=== PATIENT | female | born 1955 | race Caucasian/White ===

== ENCOUNTER → 2017-07-11 | Outpatient (CLI) | payer BC ==
[~2017-07-11] MED LIST: ASPI-496 PO; CA C1TAB62 PO; CHOL10002 PO; FOLI0.8T2 PO; MULT-208 PO; VALA500T4 PO
== END | disposition home or self-care (01) ==
LOC: CFH 11:36
PROVIDERS: ATTEND Nurse Practitioner
DX: Z12.31 Encounter for screening mammogram for malignant neoplasm of breast (principal)
CPT/HCPCS: 77063; G0202